=== PATIENT | female | born 1935 | race Caucasian/White ===

== ENCOUNTER 2017-08-12 05:48 | Inpatient (IN) | payer MEDICARE, BC ==
[2017-08-12] MEDS ORDERED: SODIUM CHLORIDE 0.9% 1,000 ML IV STA (06:07)
[2017-08-12] MEDS ORDERED: METOCLOPRAMIDE 5 MG/ML 2 ML VIAL IVP STA (06:07)
[2017-08-12] MEDS ORDERED: MECLIZINE 12.5 MG TAB PO STA (06:07)
--- NOTE | 2017-08-12 06:10 | ED ---
General Adult HPI - General Source: patient, EMS, RN notes reviewed Mode of arrival: EMS Limitations: no limitations <Donaldo Park - Last Filed: 08/12/17 06:08> <Harjinder Patel - Last Filed: 08/12/17 08:56> - General Chief complaint: Dizziness Stated complaint: Double vision Time Seen by Provider: 08/12/17 06:01 - History of Present Illness Initial comments: Patient is a pleasant 82-year-old female presenting to the emergency Department with double vision. Patient awoke from sleep around 4:30 or so this morning. Patient noticed double vision. Patient states this has continued. Patient does have a history of vertigo however this does not feel similar. Patient only has mild dizziness and this dizziness just started. No confusion. No headache. No weakness. (Donaldo Park) - Related Data Home Medications Medication Instructions Recorded Confirmed ALPRAZolam [Xanax] 0.5 mg PO TID PRN 08/12/17 08/12/17 Aspirin [Adult Low Dose Aspirin EC] 81 mg PO DAILY 08/12/17 08/12/17 Enalapril [Vasotec] 20 mg PO BID 08/12/17 08/12/17 NIFEdipine [NIFEdipine ER] 60 mg PO DAILY 08/12/17 08/12/17 traMADol HCL [Ultram] 50 mg PO QID 08/12/17 08/12/17 Allergies Allergy/AdvReac Type Severity Reaction Status Date / Time Iodinated Contrast- Oral and Allergy Rash/Hives Verified 08/12/17 07:23 IV Dye Review of Systems ROS Other: All systems not noted in ROS Statement are negative. Constitutional: Denies: fever Eyes: Reports: vision change (Double vision). Denies: eye pain ENT: Denies: ear pain Respiratory: Denies: cough Cardiovascular: Denies: chest pain Endocrine: Denies: fatigue Gastrointestinal: Denies: abdominal pain Genitourinary: Denies: dysuria Musculoskeletal: Denies: back pain Skin: Denies: rash Neurological: Denies: headache, weakness, confusion <Donaldo Park - Last Filed: 08/12/17 06:08> ROS Other: All systems not noted in ROS Statement are negative. <Harjinder Patel - Last Filed: 08/12/17 08:56> ROS Statement: Those systems with pertinent positive or pertinent negative responses have been documented in the HPI. Past Medical History Past Medical History: CVA/TIA, Hypertension, Renal Disease Additional Past Medical History / Comment(s): vertigo, stage 4 kidney disease, History of Any Multi-Drug Resistant Organisms: None Reported Past Surgical History: Cholecystectomy, Hysterectomy, Tonsillectomy Additional Past Surgical History / Comment(s): partial hyst, Past Psychological History: No Psychological Hx Reported Smoking Status: Never smoker Past Drug Use History: None Reported <Donaldo Park - Last Filed: 08/12/17 06:08> General Exam Limitations: no limitations General appearance: alert, in no apparent distress Head exam: Present: atraumatic Eye exam: Present: normal appearance, PERRL, EOMI, nystagmus (Patient has nystagmus at rest as well as horizontal and vertical nystagmus) ENT exam: Present: normal oropharynx Neck exam: Present: normal inspection Respiratory exam: Present: normal lung sounds bilaterally Cardiovascular Exam: Present: regular rate, normal rhythm GI/Abdominal exam: Present: soft. Absent: tenderness Extremities exam: Present: normal inspection Neurological exam: Present: alert, oriented X3, CN II-XII intact. Absent: motor sensory deficit Expanded Neurological exam: Present: tremor, protecting the airway Patient oriented to: Present: person, time Cranial nerves: EOM's Intact: Normal, Facial Sensation: Normal Cerebellar function: Finger to Nose: Normal Sensory exam: Upper Extremity Light Touch: Normal, Lower Extremity Light Touch: Normal Motor strength exam: RUE: 5, LUE: 5, RLE: 5, LLE: 5 Eye Response: (4) open spontaneously Motor Response: (6) obeys commands Verbal Response: (5) oriented Psychiatric exam: Present: normal affect, normal mood Skin exam: Present: normal color <Donaldo Park - Last Filed: 08/12/17 06:08> Vital Signs 08/12/17 08/12/17 08/12/17 05:50 06:58 07:20 Temperature 97.7 F 97.6 F Pulse Rate 75 82 81 Respiratory 15 16 16 Rate Blood Pressure 119/79 132/66 152/85 O2 Sat by Pulse 94 L 96 Oximetry EKG Findings - EKG Comments: EKG Findings:: Normal sinus rhythm 77. UT 168. QRS 84. QT 406. QTc 459. Normal axis. Inferior Q waves. LVH criteria. No acute ST change. <oDnaldo Park - Last Filed: 08/12/17 06:08> Medical Decision Making <Donaldo Park - Last Filed: 08/12/17 06:08> - Lab Data Result diagrams: 08/12/17 05:50 08/12/17 05:50 <Harjinder Patel - Last Filed: 08/12/17 08:56> - Medical Decision Making Computed tomography scan of the brain shows no acute abnormality. I will back into the room to reevaluate the patient she continued to have quite significant horizontal nystagmus. Patient states her vision is still blurry and she is not able to feel comfortable walking. I spoke with the [facility] [place] physician and the patient will be admitted I wrote admitting orders. (Harjinder Patel) - Lab Data Lab Results 08/12/17 08/12/17 08/12/17 Range/Units 05:50 05:50 05:50 WBC 5.7 (3.8-10.6) k/uL RBC 4.54 (3.80-5.40) m/uL Hgb 12.0 (11.4-16.0) gm/dL Hct 37.7 (34.0-46.0) % MCV 83.1 (80.0-100.0) fL MCH 26.4 (25.0-35.0) pg MCHC 31.8 (31.0-37.0) g/dL RDW 14.1 (11.5-15.5) % Plt Count 235 (150-450) k/uL Neutrophils % 56 % Lymphocytes % 26 % Monocytes % 7 % Eosinophils % 7 % Basophils % 0 % Neutrophils # 3.2 (1.3-7.7) k/uL Lymphocytes # 1.5 (1.0-4.8) k/uL Monocytes # 0.4 (0-1.0) k/uL Eosinophils # 0.4 (0-0.7) k/uL Basophils # 0.0 (0-0.2) k/uL PT 9.9 (9.0-12.0) sec INR 1.0 (<1.2) APTT 23.8 (22.0-30.0) sec Sodium 144 (137-145) mmol/L Potassium 3.5 (3.5-5.1) mmol/L Chloride 104 (98-107) mmol/L Carbon Dioxide 26 (22-30) mmol/L Anion Gap 14 mmol/L BUN 29 H (7-17) mg/dL Creatinine 0.93 (0.52-1.04) mg/dL Est GFR (CKD-EPI)AfAm 68 (>60 ml/min/1.73 sqM) Est GFR (CKD-EPI)NonAf 59 (>60 ml/min/1.73 sqM) Glucose 101 H (74-99) mg/dL Calcium 8.7 (8.4-10.2) mg/dL Total Bilirubin 0.4 (0.2-1.3) mg/dL AST 25 (14-36) U/L ALT 19 (9-52) U/L Alkaline Phosphatase 104 (38-126) U/L Total Protein 7.0 (6.3-8.2) g/dL Albumin 3.9 (3.5-5.0) g/dL Disposition <Donaldo Park - Last Filed: 08/12/17 06:08> Time of Disposition: 08:23 <Harjinder Paetl - Last Filed: 08/12/17 08:56> Clinical Impression: Blurred vision, Horizontal nystagmus Disposition: ADMITTED IP TO THIS [facility] Referrals: Nonstaff,Physician [REFERRING] - 1-2 days
[2017-08-12 06:19] LABS: Basophils % (A) 0 %; Eosinophils # (A) 0.4 k/uL (0-0.7); Eosinophils % (A) 7 %; HCT 37.7 % (34.0-46.0); Lymphocytes # (A) 1.5 k/uL (1.0-4.8); Lymphocytes % (A) 26 %; MCH 26.4 pg (25.0-35.0); MCHC 31.8 g/dL (31.0-37.0); MCV 83.1 fL (80.0-100.0); Mean Platelet Volume 7.9; Monocytes # (A) 0.4 k/uL (0-1.0); Monocytes % (A) 7 %; Neutrophils # (A) 3.2 k/uL (1.3-7.7); Neutrophils % (A) 56 %; Platelet Count 235 k/uL (150-450); RBC 4.54 m/uL (3.80-5.40); RDW 14.1 % (11.5-15.5); WBC 5.7 k/uL (3.8-10.6)
[2017-08-12 06:27] LABS: Partial Thromboplastin Time 23.8 sec (22.0-30.0); Prothrombin Time 9.9 sec (9.0-12.0)
[2017-08-12 06:30] LABS: Albumin 3.9 g/dL (3.5-5.0); Calcium 8.7 mg/dL (8.4-10.2); Potassium 3.5 mmol/L (3.5-5.1); Total Bilirubin 0.4 mg/dL (0.2-1.3)
--- NOTE | 2017-08-12 07:19 | CT ---
EXAM: CT Head Without Intravenous Contrast CLINICAL HISTORY: Nystagmus and double vision TECHNIQUE: Axial computed tomography images of the head/brain without intravenous contrast. CTDI is 59.58 mGy and DLP is 1064.55 mGy-cm. This CT exam was performed using one or more of the following dose reduction techniques: automated exposure control, adjustment of the mA and/or kV according to patient size, and/or use of iterative reconstruction technique. Coronal and sagittal reconstructions are performed COMPARISON: No relevant prior studies available. FINDINGS: Brain: Unremarkable. No hemorrhage. No significant white matter disease. No edema. Ventricles: Unremarkable. No ventriculomegaly. Bones/joints: Unremarkable. No acute fracture. Soft tissues: Unremarkable. Sinuses: Unremarkable as visualized. No acute sinusitis. Mastoid air cells: Unremarkable as visualized. No mastoid effusion. IMPRESSION: Normal head/brain CT.
[2017-08-12] MEDS ORDERED: ALPRAZolam 0.25 MG TAB PO STA ×2 (08:51→08:53)
[2017-08-12] MEDS ORDERED: SODIUM CHLORIDE 0.9% 1,000 ML IV ONE (08:56)
[2017-08-12] MEDS ORDERED: ASPIRIN 81 MG PO SCH (09:15)
[2017-08-12] MEDS ORDERED: MECLIZINE 25 MG TAB PO PRN (10:38)
[2017-08-12] MEDS ORDERED: ACETAMINOPHEN TAB 325 MG TAB PO PRN (10:40)
[2017-08-12] MEDS ORDERED: KETOROLAC 30 MG/ML 1 ML VIAL IVP STA (10:41)
--- NOTE | 2017-08-12 10:41 | P.HPIM ---
History of Present Illness H&P Date: 08/12/17 Chief Complaint: Dizziness and double vision The patient is a 82-year-old female a past medical history of hypertension, anxiety that presents to the ER with chief complaint of sudden onset of double vision that she noticed suddenly after waking up earlier this morning. The patient attempted to ambulate but felt unsteady. She only complaints of a mild occipital headache with no associated nausea, vomiting or tinnitus. She denies any chest pain shortness of breath or palpitations The patient denies any recent illnesses, denies any focal weakness, confusion or slurred speech. In the ER she had a CT of her head that was negative for any acute intracranial abnormality Review of Systems Although 14 point review of systems negative except for HPI Past Medical History Past Medical History: CVA/TIA, Hypertension, Renal Disease Additional Past Medical History / Comment(s): vertigo, stage 4 kidney disease, History of Any Multi-Drug Resistant Organisms: None Reported Past Surgical History: Cholecystectomy, Hysterectomy, Tonsillectomy Additional Past Surgical History / Comment(s): partial hyst, Past Psychological History: No Psychological Hx Reported Smoking Status: Never smoker Past Drug Use History: None Reported Medications and Allergies Home Medications Medication Instructions Recorded Confirmed Type ALPRAZolam [Xanax] 0.5 mg PO TID PRN 08/12/17 08/12/17 History Aspirin [Adult Low Dose Aspirin EC] 81 mg PO DAILY 08/12/17 08/12/17 History Enalapril [Vasotec] 20 mg PO BID 08/12/17 08/12/17 History NIFEdipine [NIFEdipine ER] 60 mg PO DAILY 08/12/17 08/12/17 History traMADol HCL [Ultram] 50 mg PO QID 08/12/17 08/12/17 History Allergies Allergy/AdvReac Type Severity Reaction Status Date / Time Iodinated Contrast- Oral and Allergy Rash/Hives Verified 08/12/17 07:23 IV Dye Physical Exam Vitals: Vital Signs Temp Pulse Resp BP Pulse Ox 08/12/17 09:00 80 14 132/73 97 08/12/17 07:20 97.6 F 81 16 152/85 96 08/12/17 06:58 82 16 132/66 94 L 08/12/17 05:50 97.7 F 75 15 119/79 Intake and Output 08/11/17 08/12/17 08/12/17 22:59 06:59 14:59 Other: Weight 58.06 kg Constitutional: No acute distress, conversant, pleasant Eyes: Anicteric sclerae, moist conjunctiva, no lid-lag, PERRLA ENMT: NC/AT,Oropharynx clear, no erythema, exudates Neck:Supple, FROM, no masses, or JVD, No carotid bruits; No thyromegaly Lungs: Clear to auscultation, Clear to percussion, Normal respiratory effort, no accessory muscle use Cardiovascular: Heart regular in rate and rhythm, No murmurs, gallops, or rubs no peripheral edema Abdominal: Soft Nontender, nom distended, no guarding, no rebound or rigidity, Normoactive bowel sounds No hepatomegaly, No splenomegaly, No palpable mass No abdominal wall hernia noted Skin: Normal temperature, tone, texture, turgor, No induration No subcutaneous nodules, No rash, lesions, No ulcers Extremities:No digital cyanosis No clubbing, Pedal pulses intact and symmetrical Radial pulses intact and symmetrical Normal gait and station, No calf tenderness Psychiatric: Alert and oriented to person, place and time, Appropriate affect Intact judgement Neuro: Muscles Strength 5/5 in all 4 extremities, Sensation to light touch grossly present throughout, vertical and horizontal nystagmus Results CBC & Chem 7: 08/12/17 05:50 08/12/17 05:50 Labs: Abnormal Lab Results - Last 24 Hours (Table) 08/12/17 Range/Units 05:50 BUN 29 H (7-17) mg/dL Glucose 101 H (74-99) mg/dL Assessment and Plan (1) Monocular diplopia of both eyes Current Visit: Yes Status: Acute Code(s): H53.2 - DIPLOPIA SNOMED Code(s) : 95021880 (2) Vertigo Current Visit: Yes Status: Acute Code(s): R42 - DIZZINESS AND GIDDINESS SNOMED Code(s): 126141120 (3) Occipital headache Current Visit: Yes Status: Acute Code(s): R51 - HEADACHE SNOMED Code(s): 383020 (4) Essential hypertension Current Visit: Yes Status: Acute Code(s): I10 - ESSENTIAL (PRIMARY) HYPERTENSION SNOMED Code(s): 35150497 Plan: The patient is placed in observation anticipate a less than 2 midnight stay after presenting with sudden onset of diplopia that began earlier this morning. On physical exam she has both horizontal and vertical nystagmus. Given her history of hypertension would like to order MRI of her head to rule out any acute CVA, she is continued on aspirin therapy and continuing her home antihypertensive regimen. We'll check a lipid panel. Order naproxen and Tylenol for her headache. We'll initiate meclizine therapy for possible vertigo. We'll await further neurology recommendations and continue to follow her clinical course
[2017-08-12] MEDS: traMADol 50 MG TAB PO SCH ×3 (15:52→17:49)
[2017-08-12] MEDS: LISINOPRIL 20 MG TAB PO SCH ×2 (16:15→20:38)
[2017-08-12] MEDS ORDERED: ALPRAZolam 0.5 MG TAB PO PRN (16:52)
[2017-08-12] MEDS: ALPRAZolam 0.25 MG TAB PO PRN ×2 (17:49→20:38)
--- NOTE | 2017-08-12 20:06 | P.CNNES ---
History of Present Illness Consult date: 08/12/17 Reason for Consult: Patient with diplopia and nystagmus on lateral gaze. History of Present Illness: This patient is a 82-year-old right-handed white female who states that she awoke at 4 AM in the morning and noticed that she was having difficulty with her vision. She was looking off to the bedroom wall and noticed that she was seen to objects everywhere she looked. The symptoms came on very suddenly when she awoke at 4 AM. She did not experience any severe nausea vomiting with the symptoms. She did check her blood pressure and at the time and it was slightly elevated. She called EMS at 5 AM after speaking to her daughter. Patient was brought into the emergency room and was seen in the ER [facility] by Dr. Park. She was sent for a computed tomography scan of the brain which was reported normal. She was noted in the ER as having horizontal nystagmus which did not seem to extinguish. Patient states she has a history of vertigo 25 years ago but her symptoms seem to be quite different today on arising early this morning. The patient states her symptoms have improved since admission to the hospital but still feels slightly symptomatic. She also complained of double vision early this morning which seemed to also have improved if she covers one eye. Currently her vision is only blurred and not showing double vision to her on examination. The patient states she has no previous history of TIA or stroke. She has been having difficulty with uncontrolled hypertension over this past year. Her primary care physician is at [facility] and she does follow with him on a regular basis. Her neurological examination at bedside today reveals her to have horizontal nystagmus on lateral gaze worse on the right than the left. There is a rotatory component to these nystagmus. These findings are suggesting possibility of acute labyrinthitis. Given her history and her age however we are recommending that she have an MRI of the brain to rule out brainstem ischemia. We have recommended patient be placed on Antivert 12.5 mg 1 by mouth twice a day. We will continue to monitor her response closely over time. Would also recommend a carotid Doppler study to be done as this has not been checked recently for her. The patient is now admitted and neurology has been consulted for further evaluation and recommendations. Review of Systems Constitutional: Denies chills, Denies fever Eyes: denies blurred vision, denies pain Ears, nose, mouth and throat: Denies headache, Denies sore throat Cardiovascular: Denies chest pain, Denies shortness of breath Respiratory: Denies cough Gastrointestinal: Denies abdominal pain, Denies diarrhea, Denies nausea, Denies vomiting Genitourinary: Denies dysuria, Denies hematuria Musculoskeletal: Denies myalgias Integumentary: Denies pruritus, Denies rash Neurological: Denies numbness, Denies weakness Psychiatric: Denies anxiety, Denies depression Endocrine: Denies fatigue, Denies weight change Past Medical History Past Medical History: CVA/TIA, Hypertension, Renal Disease Additional Past Medical History / Comment(s): Pt states she was told at [facility] that her cat scan showed a CVA but pt states she had no symptoms, 30 years ago had vertigo, "borderline diabetes", pt states she has never been told she has kidney disease and does not know why it keeps popping up in her health hx ( stage IV noted). History of Any Multi-Drug Resistant Organisms: None Reported Past Surgical History: Cholecystectomy, Hysterectomy, Tonsillectomy Additional Past Surgical History / Comment(s): partial hyst, colonoscopy greater than 10 yrs ago. Past Anesthesia/Blood Transfusion Reactions: No Reported Reaction Smoking Status: Former smoker - Past Family History Father Family Medical History: Musculoskeletal Disorder, Neurologic Disorder Additional Family Medical History / Comment(s): Parkinson's dx Mother Family Medical History: Cancer Additional Family Medical History / Comment(s): Mother had breast and lung cancer and survived them both. Medications and Allergies Home Medications Medication Instructions Recorded Confirmed Type ALPRAZolam [Xanax] 0.5 mg PO TID PRN 08/12/17 08/12/17 History Aspirin [Adult Low Dose Aspirin EC] 81 mg PO DAILY 08/12/17 08/12/17 History Enalapril [Vasotec] 20 mg PO BID 08/12/17 08/12/17 History NIFEdipine [NIFEdipine ER] 60 mg PO DAILY 08/12/17 08/12/17 History traMADol HCL [Ultram] 50 mg PO QID 08/12/17 08/12/17 History Allergies Allergy/AdvReac Type Severity Reaction Status Date / Time Iodinated Contrast- Oral and Allergy Rash/Hives Verified 08/12/17 07:23 IV Dye Physical Examination - Vital Signs Vital Signs: Vital Signs Temp Pulse Pulse Resp BP BP Pulse Ox 08/12/17 18:11 97.9 F 83 16 161/89 92 L 08/12/17 17:04 91 16 169/97 94 L 08/12/17 16:21 92 16 165/98 08/12/17 14:51 87 16 127/79 94 L 08/12/17 13:51 78 14 131/58 97 08/12/17 12:08 83 14 130/79 98 08/12/17 10:58 73 16 127/78 94 L 08/12/17 09:00 80 14 132/73 97 08/12/17 07:20 97.6 F 81 16 152/85 96 08/12/17 06:58 82 16 132/66 94 L 08/12/17 05:50 97.7 F 75 15 119/79 Intake and Output 08/12/17 08/12/17 08/12/17 06:59 14:59 22:59 Other: Voiding Method Toilet # Bowel Movements 1 Weight 58.06 kg - Constitutional General appearance: average body habitus, cooperative - EENT EENT: PERRL, mucous membranes moist - Respiratory Respiratory: lungs clear, normal breath sounds - Cardiovascular Cardiovascular: regular rate, normal S1, normal S2 Extremities: no peripheral edema bilaterally - Gastrointestinal Gastrointestinal: normoactive bowel sounds - Integumentary Integumentary: normal - Neurologic Cranial nerve examination: PERRL, EOMI, VFF, nystagmus (Horizontal nystagmus worse on gaze to the right.), V1/V2/V3 grossly intact, face symmetric, tongue midline, intact gag reflex, intact corneal reflex, normal palatal elevation Speech examination: intact Sensorimotor examination: intact Motor examination - right side: 4/5: biceps, triceps, wrist flexion, wrist extension, glass bead maker, hip flexors, knee extensors, dorsiflexion, toe extension (EHL) , plantarflexion Motor examination - left side: 4/5: biceps, triceps, wrist flexion, wrist extension, glass bead maker, hip flexors, knee extensors, dorsiflexion, toe extension (EHL) , plantarflexion Detailed sensory examination: intact Reflex and gait examination: intact Reflexes: 1+: ankle, bicep, knee, tricep - Musculoskeletal Musculoskeletal: no pain - Psychiatric Psychiatric: mood/affect appropriate, cooperative Results - Laboratory Findings CBC and BMP: 08/12/17 05:50 08/12/17 05:50 Abnormal Lab Findings: Abnormal Labs 08/12/17 05:50 BUN 29 H Glucose 101 H Assessment and Plan (1) Acute labyrinthitis Current Visit: Yes Status: Acute Code(s): H83.09 - LABYRINTHITIS, UNSPECIFIED EAR SNOMED Code(s): 90288027 (2) Diplopia Current Visit: Yes Status: Acute Code(s): H53.2 - DIPLOPIA SNOMED Code(s) : 84238953 (3) Horizontal nystagmus Current Visit: Yes Status: Acute Code(s): H55.09 - OTHER FORMS OF NYSTAGMUS SNOMED Code(s): 78448396 (4) Essential hypertension Current Visit: Yes Status: Acute Code(s): I10 - ESSENTIAL (PRIMARY) HYPERTENSION SNOMED Code(s): 78613227 Plan: This patient is a 82-year-old female who awoke early this morning at 4 AM with sudden onset of double vision and difficulty with focusing with her eyes. She was brought into the emergency room where she was found to have evidence of horizontal nystagmus. She underwent a computed tomography scan of the brain which was reported normal. Her neurological exam reveals her to have horizontal nystagmus right greater than left side on lateral gaze. There is a rotatory component seen as well. These findings are suggesting acute labyrinthitis as possible etiology for her condition. We are recommending she be placed on Antivert 12.5 mg by mouth twice a day. Would recommend MRI of the brain to further evaluate to rule out brainstem ischemia for this patient as well. We would also recommend a carotid Doppler ultrasound as this is not been checked recently. She is advised to follow low sodium diet and apparently she has been very liberal in the use of salt in her diet. This may also be a contributing factor for her current symptoms. We will continue close neurological follow-up with the patient. Would recommend she follow-up with the ENT regarding acute labyrinthitis and further recommendations. This patient 's overall prognosis at this time remains guarded. This case was discussed at length with the patient and her daughter at bedside. All their questions were answered. They're aware of our current recommendations and treatment plan. Time with Patient: Greater than 30
[2017-08-12] MEDS: MECLIZINE 12.5 MG TAB PO SCH (20:38)
[2017-08-13] MEDS: NAPROXEN 250 MG TAB PO SCH ×3 (01:04→20:32)
[2017-08-13] MEDS: traMADol 50 MG TAB PO SCH ×5 (01:04→22:26)
[2017-08-13] MEDS: ALPRAZolam 0.25 MG TAB PO PRN (05:58)
[2017-08-13] MEDS: LISINOPRIL 20 MG TAB PO SCH ×2 (05:58→20:28)
--- NOTE | 2017-08-13 06:50 | MR ---
EXAMINATION TYPE: MR brain wo con DATE OF EXAM: 08/13/2017 COMPARISON: CT brain earlier today. HISTORY: double vision, vertigo, and nystagmus. TECHNIQUE: Multiplanar, multisequence imaging of the brain and brainstem is performed without IV cont rast. FINDINGS: Diffusion weighted images demonstrate area of increased signal on diffusion weighted images with dimi nished signal on ADC mapping that shows T1 hypointensity and T2 hyperintensity consistent with evolvi ng acute infarct involving the anterior aspect inferior aspect of the right cerebellar hemisphere kelly suring roughly 3.0 cm AP diameter by 2.5 cm transversely by 1.5 cm craniocaudal dimension. There is no worrisome extraaxial fluid collection. Ventricles and sulci are mildly prominent consiste nt with mild diffuse age-related cerebral atrophy. There are scattered foci of T2 hyperintensity seen throughout the deep and periventricular white matter. Lesions are nonspecific in appearance and dist ribution but most likely on basis of product of chronic small vessel ischemic change. Midline structures demonstrate normal morphology. The craniocervical junction appears within normal limits. Normal vascular flow voids are present. The visualized sinuses are clear and the globes are i ntact. IMPRESSION: 1. Evolving acute infarct involving anterior inferior aspect of the right cerebellar hemisphere. 2. Background of mild diffuse cerebral atrophy and mild to moderate chronic small vessel ischemic marina nge is redemonstrated. A Yellow level critical message alert has been initiated for Aron Fairbanks MD~[id number] via the [facility] Critical Results System on 08/13/2017 6:48 AM. This message alert has been sent to Aron grewal MD~[id number] via the preferences provided by the clinician for the receipt of Radiology Critical Findi ngs. Message ID [id number].
[2017-08-13 07:57] LABS: Cholesterol 179 mg/dL (<200); HDL Cholesterol 58 mg/dL (40-60); LDL Cholesterol,Calculated 107 mg/dL (0-99); Triglycerides 69 mg/dL (<150)
[2017-08-13] MEDS: MECLIZINE 12.5 MG TAB PO SCH ×2 (09:51→20:28)
[2017-08-13] MEDS: ASPIRIN 325 MG TAB PO SCH (09:53)
[2017-08-13] MEDS: ATORVASTATIN 40 MG TAB PO SCH (09:55)
[2017-08-13] MEDS ORDERED: ALPRAZolam 0.25 MG TAB PO STA (11:21)
--- NOTE | 2017-08-13 11:30 | P.PN ---
Subjective Progress Note Date: 08/13/17 Principal diagnosis: 82-year-old female with a past with a history of labile essential hypertension presenting with complaints of double vision with the vertical and horizontal nystagmus noted on physical exam and subsequent MRI finding consistent with evolving acute infarct involving anterior inferior aspect of the right cerebellar hemisphere. Mild diffuse cerebral atrophy and mild to moderate chronic small vessel ischemia Patient doing well, still complaining of double vision. Patient having elevated blood pressures and continues attributed to her anxiety. Under further questioning the patient reports a long history of refractory hypertension apparently that only response to diltiazem. Objective - Vital Signs Vital signs: Vital Signs Temp 97.5 F L 08/13/17 08:00 Pulse 83 08/13/17 08:00 Resp 18 08/13/17 08:00 BP 138/85 08/13/17 08:00 Pulse Ox 96 08/13/17 04:00 Intake & Output 08/12/17 08/13/17 08/13/17 18:59 06:59 18:59 Intake Total 390 250 Balance 390 250 Weight 57.2 kg Intake: IV 10 saline 10 Intake, IV Titration 150 Amount Sodium Chloride 0.9% 1, 150 000 ml @ 75 mls/hr IV . [id number] ONE Rx#:[id number] Oral 240 240 Other: Voiding Method Toilet Toilet Toilet # Voids 2 # Bowel Movements 1 - Exam Constitutional: No acute distress, conversant, pleasant Eyes: Anicteric sclerae, moist conjunctiva, no lid-lag, PERRLA ENMT: NC/AT,Oropharynx clear, no erythema, exudates Neck:Supple, FROM, no masses, or JVD, No carotid bruits; No thyromegaly Lungs: Clear to auscultation, Clear to percussion, Normal respiratory effort, no accessory muscle use Cardiovascular: Heart regular in rate and rhythm, No murmurs, gallops, or rubs no peripheral edema Abdominal: Soft Nontender, nom distended, no guarding, no rebound or rigidity, Normoactive bowel sounds No hepatomegaly, No splenomegaly, No palpable mass No abdominal wall hernia noted Skin: Normal temperature, tone, texture, turgor, No induration No subcutaneous nodules, No rash, lesions, No ulcers Extremities:No digital cyanosis No clubbing, Pedal pulses intact and symmetrical Radial pulses intact and symmetrical Normal gait and station, No calf tenderness Psychiatric: Alert and oriented to person, place and time, Appropriate affect Intact judgement Neuro: Muscles Strength 5/5 in all 4 extremities, Sensation to light touch grossly present throughout, Cranial nerves II-XII grossly intact. No focal sensory deficits - Labs CBC & Chem 7: 08/12/17 05:50 08/12/17 05:50 Labs: Abnormal Lab Results - Last 24 Hours (Table) 08/13/17 Range/Units 07:18 LDL Cholesterol, Calc 107 H (0-99) mg/dL Assessment and Plan (1) Cerebellar infarct Narrative/Plan: * MRI confirming evolving acute infarct involving anterior inferior aspect of the right cerebellar hemisphere * Increased dosage of aspirin to 325 mg by mouth daily, patient started on Lipitor 40 mg by mouth daily * Appreciate neurology recommendations * We'll consult physical therapy for further recommendations Current Visit: Yes Status: Acute Code(s): I63.9 - CEREBRAL INFARCTION, UNSPECIFIED SNOMED Code(s): 80081630 (2) Accelerated hypertension Narrative/Plan: * Blood pressure continues to be elevated we'll allow some permissive hypertension * However will titrate up her nifedipine xl to 90 mg by mouth daily and start hydralazine 10 mg by mouth every 6 hours when necessary systolic greater than 160 * We'll continue to monitor Current Visit: Yes Status: Acute Code(s): I10 - ESSENTIAL (PRIMARY) HYPERTENSION SNOMED Code(s): 68217672 (3) Vertigo Narrative/Plan: * Likely secondary to acute cerebellar CVA * Can likely discontinue meclizine Current Visit: Yes Status: Acute Code(s): R42 - DIZZINESS AND GIDDINESS SNOMED Code(s): 122623298 (4) Hyperlipidemia LDL goal <70 Narrative/Plan: * Patient started on statin therapy Current Visit: Yes Status: Acute Code(s): E78.5 - HYPERLIPIDEMIA, UNSPECIFIED SNOMED Code(s): 03937075 (5) Monocular diplopia of both eyes Narrative/Plan: * Secondary to acute cerebellar CVA Current Visit: Yes Status: Acute Code(s): H53.2 - DIPLOPIA SNOMED Code(s) : 50555887 (6) Occipital headache Narrative/Plan: * Likely secondary to acute CVA * Continue with naproxen Current Visit: Yes Status: Acute Code(s): R51 - HEADACHE SNOMED Code(s): 677683
[2017-08-13] MEDS: hydrALAZINE HCL 10 MG TAB PO PRN ×2 (17:35→23:22)
[2017-08-13] MEDS: ALPRAZolam 0.5 MG TAB PO PRN (19:21)
--- NOTE | 2017-08-13 21:06 | P.PN ---
Subjective Progress Note Date: 08/13/17 This patient is a 82-year-old right-handed white female who was admitted to hospital yesterday with symptoms of acute diplopia and dizziness. Her neurological examination yesterday revealed her to have evidence of horizontal nystagmus worse on the right side. Medical differential diagnosis of her finding suggested possibility of brainstem ischemia versus acute labyrinthitis. She was started on Antivert yesterday for further treatment of possible vertigo. We've recommended an MRI of the brain to be done which was completed today. Her MRI results indicated that she has suffered an acute infarct involving the anterior inferior aspect of the right cerebellar hemisphere. This likely explains her symptoms of dizziness and possibly even the diplopia that she was expressing. She did have significant sustained horizontal nystagmus on gaze to the right history and examination. We did review the results of the MRI today with the patient in detail. Clinically she has shown improvement and was able to ambulate with the nurse down the hallway without any difficulties. She denies any gait disturbance and no sense of disequilibrium. Her dosage of aspirin is now been increased to 325 mg daily. Patient is also started on Lipitor 40 mg daily. Would agree for both of these medication changes for her. Would continue evaluation by physical therapy and occupational therapy for this patient. We will await their further recommendations. Apparently she is not experiencing any gait difficulty when ambulating. She is being treated for accelerated hypertension and her medications are being adjusted by Dr. Fairbanks. We will continue to follow her progress closely during this admission. Given the finding of her MRI showing right cerebellar infarct we would recommend MRA for further evaluation of vascular distribution in the brainstem area. We will arrange for MRA of the brain to be done tomorrow for further assessment. We will continue close neurological monitoring of the patient during this admission. Her overall prognosis remains guarded. Case was discussed at length today with the patient and 2 of her daughters at bedside. All of their questions were answered. They' re aware of the MRI findings and current treatment plan. Objective - Vital Signs Vital signs: Vital Signs Temp 99.2 F 08/13/17 15:54 Pulse 98 08/13/17 15:54 Resp 16 08/13/17 15:54 BP 175/107 08/13/17 16:55 Pulse Ox 94 L 08/13/17 15:54 Intake & Output 08/12/17 08/13/17 08/13/17 18:59 06:59 18:59 Intake Total 390 1210 Balance 390 1210 Weight 57.2 kg Intake: IV 10 saline 10 Intake, IV Titration 150 Amount Sodium Chloride 0.9% 1, 150 000 ml @ 75 mls/hr IV . [id number] ONE Rx#:[id number] Oral 240 1200 Other: Voiding Method Toilet Toilet Toilet # Voids 2 2 # Bowel Movements 1 1 - Exam Physical examination: PHYSICAL EXAMINATION: Patient is resting comfortably in bed. VITAL SIGNS: Blood pressure is [141/83]. Heart rate is [98]. Respiration is [16] . Temperature is [99.2]. HEENT: Head is atraumatic, neck is supple, there were no carotid bruits. CHEST: Lungs are clear to auscultation and percussion. CARDIAC: S1, S2 normal rate and rhythm. There is no murmur. ABDOMEN: Soft and nontender. Bowel sounds are present. EXTREMITIES: There is no pedal edema. Peripheral pulses are present. Neurological examination: Patient is awake alert and oriented 3. Her speech is fluent with no evidence of any aphasia or dysarthria. Cranial nerves II through XII are grossly intact. She has much less evidence of horizontal nystagmus today on gaze testing. Motor examination fails to reveal any focal weakness. Deep tendon reflexes are 1+ and symmetric. Plantar responses flexor bilaterally. Romberg is negative. - Labs CBC & Chem 7: 08/12/17 05:50 08/12/17 05:50 Labs: Abnormal Lab Results - Last 24 Hours (Table) 08/13/17 Range/Units 07:18 LDL Cholesterol, Calc 107 H (0-99) mg/dL Assessment and Plan (1) Acute labyrinthitis Current Visit: Yes Status: Acute Code(s): H83.09 - LABYRINTHITIS, UNSPECIFIED EAR SNOMED Code(s): 46986289 (2) Diplopia Current Visit: Yes Status: Acute Code(s): H53.2 - DIPLOPIA SNOMED Code(s) : 39521493 (3) Horizontal nystagmus Current Visit: Yes Status: Acute Code(s): H55.09 - OTHER FORMS OF NYSTAGMUS SNOMED Code(s): 36838772 (4) Essential hypertension Current Visit: Yes Status: Acute Code(s): I10 - ESSENTIAL (PRIMARY) HYPERTENSION SNOMED Code(s): 80007129 Plan: This patient is 82-year-old right-handed white female who was admitted to hospital yesterday with symptoms of diplopia and dizziness. She was sent for MRI of the brain today for further evaluation. MRI reveals evidence of an acute infarct involving the right cerebellar hemisphere. We'll recommend patient undergo MRA of the brain tomorrow for further evaluation. She is to continue on 1 full dose aspirin daily for secondary stroke prevention. She is being treated for accelerated hypertension as well and her blood pressure seems to be fluctuating. We will await further recommendations from Dr. Fairbanks. Patient should continue close monitoring for any further recurrent symptoms of dizziness or gait instability. She was able to ambulate and walk today the hallway without any difficulties with the nursing staff. We will continue close neurological follow-up for the patient during this admission. Her MRI results were discussed at length with the patient and 2 of her daughters bedside. All the questions were answered. They're aware of her guarded condition.
[2017-08-14] MEDS: traMADol 50 MG TAB PO SCH ×4 (05:55→21:28)
[2017-08-14] MEDS: LISINOPRIL 20 MG TAB PO SCH ×2 (05:56→20:41)
[2017-08-14] MEDS: NIFEdipine XL 90 MG TAB.ER.24 PO SCH (05:57)
[2017-08-14] MEDS: ASPIRIN 325 MG TAB PO SCH (08:49)
[2017-08-14] MEDS: MECLIZINE 12.5 MG TAB PO SCH ×2 (08:50→20:42)
[2017-08-14] MEDS: ATORVASTATIN 40 MG TAB PO SCH (08:51)
[2017-08-14] MEDS: NAPROXEN 250 MG TAB PO SCH ×2 (08:52→20:42)
[2017-08-14] MEDS: CHLORTHALIDONE 25 MG TAB PO SCH (12:28)
--- NOTE | 2017-08-14 12:42 | P.PN ---
Subjective Progress Note Date: 08/14/17 Principal diagnosis: 82-year-old female with a past with a history of labile essential hypertension presenting with complaints of double vision with the vertical and horizontal nystagmus noted on physical exam and subsequent MRI finding consistent with evolving acute infarct involving anterior inferior aspect of the right cerebellar hemisphere. Mild diffuse cerebral atrophy and mild to moderate chronic small vessel ischemia Patient doing well, reports that her double vision and dizziness has resolved, ongoing elevated blood pressures and continues attributed to her anxiety. Patient reluctant to add any more medications to her regimen, unexplained on her ongoing risk factors for uncontrolled blood pressures can lead to more CVAs in the future, and that I would not be able to effectively to my job without adding another antihypertensive medication. She voiced understanding and became agreeable Objective - Vital Signs Vital signs: Vital Signs Temp 97.6 F 08/14/17 11:30 Pulse 90 08/14/17 11:30 Resp 18 08/14/17 11:30 BP 132/84 08/14/17 11:30 Pulse Ox 94 L 08/14/17 11:30 Intake & Output 08/13/17 08/14/17 08/14/17 18:59 06:59 18:59 Intake Total 1570 100 Balance 1570 100 Weight 57.7 kg Intake: IV 10 saline 10 Oral 1560 100 Other: Voiding Method Toilet Toilet Toilet # Voids 4 1 # Bowel Movements 1 - Exam Constitutional: No acute distress, conversant, pleasant Eyes: Anicteric sclerae, moist conjunctiva, no lid-lag, PERRLA ENMT: NC/AT,Oropharynx clear, no erythema, exudates Neck:Supple, FROM, no masses, or JVD, No carotid bruits; No thyromegaly Lungs: Clear to auscultation, Clear to percussion, Normal respiratory effort, no accessory muscle use Cardiovascular: Heart regular in rate and rhythm, No murmurs, gallops, or rubs no peripheral edema Abdominal: Soft Nontender, nom distended, no guarding, no rebound or rigidity, Normoactive bowel sounds No hepatomegaly, No splenomegaly, No palpable mass No abdominal wall hernia noted Skin: Normal temperature, tone, texture, turgor, No induration No subcutaneous nodules, No rash, lesions, No ulcers Extremities:No digital cyanosis No clubbing, Pedal pulses intact and symmetrical Radial pulses intact and symmetrical Normal gait and station, No calf tenderness Psychiatric: Alert and oriented to person, place and time, Appropriate affect Intact judgement Neuro: Muscles Strength 5/5 in all 4 extremities, Sensation to light touch grossly present throughout, Cranial nerves II-XII grossly intact. No focal sensory deficits - Labs CBC & Chem 7: 08/12/17 05:50 08/12/17 05:50 Assessment and Plan (1) Cerebellar infarct Narrative/Plan: * MRI confirming evolving acute infarct involving anterior inferior aspect of the right cerebellar hemisphere * Increased dosage of aspirin to 325 mg by mouth daily, patient started on Lipitor 40 mg by mouth daily * Appreciate neurology recommendations patient scheduled to have MRA later today * We'll consult physical therapy for further recommendations Current Visit: Yes Status: Acute Code(s): I63.9 - CEREBRAL INFARCTION, UNSPECIFIED SNOMED Code(s): 75889266 (2) Accelerated hypertension Narrative/Plan: * Blood pressure continues to be elevated SbPs 160s * continue with nifedipine xl to 90 mg mouth daily, add chlorthalidone 25 mg to her regimen and continue hydralazine 10 mg by mouth every 6 hours when necessary systolic greater than 160 * We'll continue to monitor Current Visit: Yes Status: Acute Code(s): I10 - ESSENTIAL (PRIMARY) HYPERTENSION SNOMED Code(s): 21001160 (3) Vertigo Narrative/Plan: * Likely secondary to acute cerebellar CVA * Can likely discontinue meclizine Current Visit: Yes Status: Resolved Code(s): R42 - DIZZINESS AND GIDDINESS SNOMED Code(s): 917460375 (4) Hyperlipidemia LDL goal <70 Narrative/Plan: * Patient started on statin therapy Current Visit: Yes Status: Acute Code(s): E78.5 - HYPERLIPIDEMIA, UNSPECIFIED SNOMED Code(s): 68251026 (5) Monocular diplopia of both eyes Narrative/Plan: * Secondary to acute cerebellar CVA Current Visit: Yes Status: Resolved Code(s): H53.2 - DIPLOPIA SNOMED Code( s): 80952450 (6) Occipital headache Current Visit: Yes Status: Acute Code(s): R51 - HEADACHE SNOMED Code(s): 946466
--- NOTE | 2017-08-14 12:42 | MR ---
EXAMINATION TYPE: MR angio head wo con DATE OF EXAM: 08/14/2017 12:09 PM COMPARISON: NONE HISTORY: Acute right cerebellar stroke Three-dimensional [id number] intracranial MRA was performed with multiple intensity projection im ages submitted and source data reviewed at the workstation. The vertebrobasilar system as well as intracranial portions of the internal carotid arteries and thei r major tributaries are patent. Dominant right vertebral artery. origin of the posterior cereb ral arteries. I do not see evidence for sizable aneurysm or vascular malformation. IMPRESSION: No significant abnormality seen.
[2017-08-14] MEDS: ALPRAZolam 0.5 MG TAB PO PRN ×2 (14:42→20:43)
[2017-08-15 01:40] VITALS: TEMP 98.2
[2017-08-15] MEDS: traMADol 50 MG TAB PO SCH (06:27)
[2017-08-15 09:30] VITALS: BP 134/73; PULSE 98; RESP 15
[2017-08-15] MEDS: ATORVASTATIN 40 MG TAB PO SCH (09:32)
[2017-08-15] MEDS: ASPIRIN 325 MG TAB PO SCH (09:32)
[2017-08-15] MEDS: LISINOPRIL 20 MG TAB PO SCH (09:33)
[2017-08-15] MEDS: CHLORTHALIDONE 25 MG TAB PO SCH (09:33)
[2017-08-15] MEDS: MECLIZINE 12.5 MG TAB PO SCH (09:37)
[2017-08-15] MEDS: NAPROXEN 250 MG TAB PO SCH (09:38)
[2017-08-15] MEDS: NIFEdipine XL 90 MG TAB.ER.24 PO SCH (09:39)
[2017-08-15 09:44] LABS: Basophils % (A) 0 %; Eosinophils # (A) 0.1 k/uL (0-0.7); Eosinophils % (A) 1 %; HCT 34.8 % (34.0-46.0); HGB 11.6 gm/dL (11.4-16.0); Lymphocytes # (A) 0.6 k/uL (1.0-4.8); Lymphocytes % (A) 7 %; MCH 27.7 pg (25.0-35.0); MCHC 33.4 g/dL (31.0-37.0); MCV 83.1 fL (80.0-100.0); Mean Platelet Volume 7.9; Monocytes # (A) 0.6 k/uL (0-1.0); Monocytes % (A) 7 %; Neutrophils # (A) 7.8 k/uL (1.3-7.7); Neutrophils % (A) 84 %; Platelet Count 226 k/uL (150-450); RBC 4.19 m/uL (3.80-5.40); RDW 13.8 % (11.5-15.5); WBC 9.3 k/uL (3.8-10.6)
[2017-08-15 09:53] LABS: Calcium 8.4 mg/dL (8.4-10.2); Potassium 3.9 mmol/L (3.5-5.1)
[2017-08-15 10:07] LABS: Appearance,Urine Clear (Clear); Bacteria,Urine Rare /hpf; Bilirubin,Urine Negative (Negative); Blood,Urine Negative (Negative); Color,Urine Yellow; Glucose,Urine (UA) Negative (Negative); Hyaline Casts,Urine 1 /lpf (0-2); Ketones,Urine Negative (Negative); Leukocyte Esterase,Urine Trace (Negative); Nitrite,Urine Negative (Negative); PH, Urine 6.5 (5.0-8.0); Protein,Urine Negative (Negative); RBC,Urine <1 /hpf (0-5); Specific Gravity,Urine 1.014 (1.001-1.035); Squamous Epithelial Cell,Urine 1 /hpf (0-4); Urobilinogen,Urine <2.0 mg/dL (<2.0); WBC,Urine 5 /hpf (0-5)
--- NOTE | 2017-08-15 10:15 | P.PN ---
Subjective Progress Note Date: 08/14/17 This patient is a 82-year-old right-handed white female who was admitted to hospital yesterday with symptoms of acute diplopia and dizziness. Her neurological examination yesterday revealed her to have evidence of horizontal nystagmus worse on the right side. Medical differential diagnosis of her finding suggested possibility of brainstem ischemia versus acute labyrinthitis. She was started on Antivert yesterday for further treatment of possible vertigo. We've recommended an MRI of the brain to be done which was completed today. Her MRI results indicated that she has suffered an acute infarct involving the anterior inferior aspect of the right cerebellar hemisphere. This likely explains her symptoms of dizziness and possibly even the diplopia that she was expressing. She did have significant sustained horizontal nystagmus on gaze to the right history and examination. We did review the results of the MRI today with the patient in detail. Clinically she has shown improvement and was able to ambulate with the nurse down the hallway without any difficulties. She denies any gait disturbance and no sense of disequilibrium. Her dosage of aspirin is now been increased to 325 mg daily. Patient is also started on Lipitor 40 mg daily. Would agree for both of these medication changes for her. Would continue evaluation by physical therapy and occupational therapy for this patient. We will await their further recommendations. Apparently she is not experiencing any gait difficulty when ambulating. She is being treated for accelerated hypertension and her medications are being adjusted by Dr. Fairbanks. We will continue to follow her progress closely during this admission. Given the finding of her MRI showing right cerebellar infarct we would recommend MRA for further evaluation of vascular distribution in the brainstem area. MR angios of the head was completed today. Results of this MRA indicates no significant abnormality. We reviewed the results of the MRI today with the patient and her daughter was at bedside. Patient is recovering from right cerebellar infarct and has shown improvement with horizontal nystagmus. She is not demonstrating any disequilibrium or gait abnormality and has been working with physical therapy. She is being treated for labile essential hypertension. Medication adjustments have been made by Dr. Fairbanks. We anticipate she will be able to be discharged home soon and we will follow along closely for any further changes in her neurological status. Objective - Vital Signs Vital signs: Vital Signs Temp 97.5 F L 08/14/17 14:30 Pulse 95 08/14/17 14:30 Resp 16 08/14/17 14:30 BP 147/94 08/14/17 14:30 Pulse Ox 92 L 08/14/17 14:30 Intake & Output 08/13/17 08/14/17 08/14/17 18:59 06:59 18:59 Intake Total 1570 100 Balance 1570 100 Weight 57.7 kg Intake: IV 10 saline 10 Oral 1560 100 Other: Voiding Method Toilet Toilet Toilet # Voids 4 1 # Bowel Movements 1 - Exam Physical examination: PHYSICAL EXAMINATION: Patient is resting comfortably in bed. VITAL SIGNS: Blood pressure is [147/94]. Heart rate is [95]. Respiration is [16] . Temperature is [97.5]. HEENT: Head is atraumatic, neck is supple, there were no carotid bruits. CHEST: Lungs are clear to auscultation and percussion. CARDIAC: S1, S2 normal rate and rhythm. There is no murmur. ABDOMEN: Soft and nontender. Bowel sounds are present. EXTREMITIES: There is no pedal edema. Peripheral pulses are present. Neurological examination: Patient is awake alert and oriented 3. Her speech is fluent with no evidence of any aphasia or dysarthria. Cranial nerves II through XII are grossly intact. She has much less evidence of horizontal nystagmus today on gaze testing. Motor examination fails to reveal any focal weakness. Deep tendon reflexes are 1+ and symmetric. Plantar responses flexor bilaterally. Romberg is negative. - Labs CBC & Chem 7: 08/15/17 09:13 08/15/17 09:13 Assessment and Plan (1) Cerebellar stroke, acute Current Visit: Yes Status: Acute Code(s): I63.9 - CEREBRAL INFARCTION, UNSPECIFIED SNOMED Code(s): 371565195 (2) Acute labyrinthitis Current Visit: Yes Status: Acute Code(s): H83.09 - LABYRINTHITIS, UNSPECIFIED EAR SNOMED Code(s): 20242459 (3) Diplopia Current Visit: Yes Status: Acute Code(s): H53.2 - DIPLOPIA SNOMED Code(s) : 69417136 (4) Horizontal nystagmus Current Visit: Yes Status: Acute Code(s): H55.09 - OTHER FORMS OF NYSTAGMUS SNOMED Code(s): 44970798 (5) Essential hypertension Current Visit: Yes Status: Acute Code(s): I10 - ESSENTIAL (PRIMARY) HYPERTENSION SNOMED Code(s): 59130844 Plan: This patient is a 82-year-old female who was suffered any acute right cerebellar stroke with symptoms of horizontal nystagmus and diplopia on presentation. She has undergone MRI of and MRA of the brain results which are noted above. Patient is making good recovery from her acute stroke syndrome. Her horizontal nystagmus have improved. She has been up and ambulating. She is being treated for labile essential hypertension and her medications are being adjusted. We reviewed the results of the MRA angiogram of the head today with the patient and her daughter at bedside. There is no abnormalities detected. Patient has been up and ambulating in her room without any gait instability or disequilibrium. Would continue to increase mobility with help of physical therapy. She is being considered for possible discharge home soon once her blood pressure is best regulated. Neurologically she is showing improvement with less horizontal nystagmus on gaze testing. We will continue to follow along with Dr. Fairbanks. Her overall prognosis remains fair.
--- NOTE | 2017-08-15 11:29 | P.DS ---
Providers Date of admission: 08/13/17 13:52 Attending physician: Aron Fairbanks MD Consults: 08/12/17 08:56 Consult Physician Urgent Consulting Provider: Ariana Lange Consult Reason/Comments: Horizontal nystagmus, diplopia Do you want consulting provider notified?: Yes 08/13/17 08:00 Consult Physician Routine Consulting Provider: Gómez Cheung Consult Reason/Comments: Acute vertigo with intractable nystagmus. Do you want consulting provider notified?: Yes Primary care physician: Diego Alvarez MD - Discharge Diagnosis(es) (1) Cerebellar infarct Current Visit: Yes Status: Acute (2) Accelerated hypertension Current Visit: Yes Status: Acute (3) Vertigo Current Visit: Yes Status: Resolved (4) Hyperlipidemia LDL goal <70 Current Visit: Yes Status: Acute (5) Monocular diplopia of both eyes Current Visit: Yes Status: Resolved (6) Occipital headache Current Visit: Yes Status: Acute Hospital Course: The patient is a 82-year-old female that presented to the ER with double vision, vertigo and an occipital headache that was admitted for CVA workup. Her initial CT of the head was normal, on physical exam the patient was noted to have vertical and horizontal nystagmus and subsequent MRI of the brain showed evolving acute infarct involving the anterior inferior aspect of the right cerebellar hemisphere. A follow-up MRA showed no significant abnormalities. The patient was started on aspirin 325 mg by mouth daily, and statin therapy with Lipitor due to her dyslipidemia with her LDL being 107. The patient was noted to have accelerated hypertension and we allowed some permissive hypertension gradually titrated up her antihypertensive regimen by increasing her nifedipine from 60-90 mg by mouth daily and adding chlorthalidone 25 mg by mouth daily to her regimen. The patient was initially reluctant to add any more medications to her therapy, but I explained the ongoing risk factors that the likely cause of her stroke was uncontrolled hypertension and that to prevent recurrence or worsening sequela we need to get her blood pressure towards goal. She voiced understanding and was receptive to this. On day of discharge patient was noted to have a documented temperature of 101.3 with pulse oximetry at 91% on room air, I ordered a chest x-ray to further work this up however the patient refused to have the imaging taken despite my explanation that was concerned about underlying infection or pneumonia. The patient's symptoms of blurry vision gradually resolved and the patient was subsequently discharged home in stable condition. With new prescriptions for aspirin 325 g by mouth daily, nifedipine XL 90 mg by mouth daily, Lipitor 40 mg by mouth daily. She was instructed to follow-up with her PCP and she was scheduled to see Dr. Lange in 2 weeks. This discharge process took approximately 35 minutes Patient Condition at Discharge: Good Plan - Discharge Summary Discharge Rx Participant: No New Discharge Prescriptions: New Aspirin 325 mg PO DAILY #30 tab Atorvastatin [Lipitor] 40 mg PO DAILY #30 tab Chlorthalidone [Hygroton] 25 mg PO DAILY #30 tab NIFEdipine XL [Procardia XL] 90 mg PO DAILY #30 tab.er.24 Continue traMADol HCL [Ultram] 50 mg PO QID Enalapril [Vasotec] 20 mg PO BID ALPRAZolam [Xanax] 0.5 mg PO TID PRN PRN Reason: Anxiety Discontinued Aspirin [Adult Low Dose Aspirin EC] 81 mg PO DAILY NIFEdipine [NIFEdipine ER] 60 mg PO DAILY Discharge Medication List ALPRAZolam [Xanax] 0.5 mg PO TID PRN 08/12/17 [History] Enalapril [Vasotec] 20 mg PO BID 08/12/17 [History] traMADol HCL [Ultram] 50 mg PO QID 08/12/17 [History] Aspirin 325 mg PO DAILY #30 tab 08/15/17 [Rx] Atorvastatin [Lipitor] 40 mg PO DAILY #30 tab 08/15/17 [Rx] Chlorthalidone [Hygroton] 25 mg PO DAILY #30 tab 08/15/17 [Rx] NIFEdipine XL [Procardia XL] 90 mg PO DAILY #30 tab.er.24 08/15/17 [Rx] Follow up Appointment(s)/Referral(s): Ariana Lange MD [STAFF PHYSICIAN] - 2 Weeks (great) [place],Physician [REFERRING] - 1 Week Discharge Disposition: HOME SELF-CARE
--- NOTE | 2017-08-26 18:39 | CDI ---
Documentation Clarification Form Date: 08/26/2017 12:00:00 AM From: [place]; Sveta Hook Senior Qualitative Researcher Phone: If you have a question about this query, please contact Sveta Hook Senior Qualitative Researcher at [phone] between 8am and 5pm. Admit Date: 08/13/2017 1:52:00 PM Patient Name: Socorro Ng Visit Number: [id number] Discharge Date: 08/15/2017 ATTENTION: The Clinical Documentation Specialists (CDI) and [facility] Coding Staff appreciate your assistance in clarifying documentation. Please respond to the clarification below the line at the bottom and electronically sign. The CDI & [facility] Coding staff will review the response and follow-up if needed. Please note: Queries are made part of the Legal Health Record. If you have any questions, please contact the author of this message via ITS. Dr. Aron Fairbanks CKD stage 4 is documented in past medical history. Curent BUN/Cr/GFR : 29, 0.93, 59 Patient presented with CVA. She is currently being treated for HTN and ocular headache with antihypertensives, aspirin, naprosyn and Tylenol. In order to capture the severity of condition, please clarify if the condition signifies: CKD Stage 3 GFR 30-59 MTDD
== END 2017-08-15 14:02 | disposition home or self-care (01) | DRG 66 ==
LOC: EC 05:48 → 6SEL 08:56 → INTOOBSV 08:56 → 6SEL 13:44 → OBSVTOIN 08-13 13:52 → 4MS4W 08-14 12:56
PROVIDERS: ADMIT Family Medicine; ATTEND Family Medicine
DX: I63.9 Cerebral infarction, unspecified (principal); N18.3 Chronic kidney disease, stage 3 (moderate); E78.5 Hyperlipidemia, unspecified; F41.9 Anxiety disorder, unspecified; H53.2 Diplopia; I12.9 Hypertensive chronic kidney disease with stage 1 through stage 4 chronic kidney disease, or unspecified chronic kidney disease; R42 Dizziness and giddiness; H55.09 Other forms of nystagmus; H83.09 Labyrinthitis, unspecified ear; Z79.82 Long term (current) use of aspirin; Z79.899 Other long term (current) drug therapy; Z80.1 Family history of malignant neoplasm of trachea, bronchus and lung; Z82.0 Family history of epilepsy and other diseases of the nervous system; Z91.041 Radiographic dye allergy status; Z87.891 Personal history of nicotine dependence; Z90.710 Acquired absence of both cervix and uterus
CPT/HCPCS: 36415; 70450; 70544; 70551; 80048; 80053; 80061; 81001; 85025; 85610; 85730; 93005; 96361; 96374; 99285